=== PATIENT | male | born 1955 | race Caucasian/White ===

== ENCOUNTER → 2017-05-09 | Outpatient (CLI) | payer BC ==
[~2017-05-09] MED LIST: CAL1CHW4 PO; LISI-789 PO; RIVA1TAB4 PO; TPRSR/100 PO
[2017-05-09 13:55] LABS: BASO % 0.7 %; BASO ABS # 0.05 K/uL (0-0.2); COMPLETE YES; HEMATOCRIT 46.6 % (42-52); IG% 0.3 %; LYMPH ABS # 1.52 K/uL (1.2-3.4); MEAN CELL VOLUME 91.9 fL (80-100); MEAN CORPUSCULAR HEMOGLOBIN 31.4 pg (25-34); MEAN CORPUSCULAR HGB CONC 34.1 g/dl (32-36); MEAN PLATELET VOLUME 12.5 fL (7.4-10.4); MONO % 10.5 %; NEUT % 64.5 %; PLATELET COUNT 216 K/uL (130-400); RED BLOOD COUNT 5.07 M/uL (4.7-6.1); WHITE BLOOD COUNT 6.92 K/uL (4.8-10.8)
[2017-05-09 15:11] LABS: ALB/GLOB RATIO 0.9 (0.9-2); ALKALINE PHOSPHATASE 79 U/L (45-117); ALT/SGPT 49 U/L (12-78); AST/SGOT 23 U/L (15-37); BLOOD UREA NITROGEN 14 mg/dl (7-18); BUN/CREATININE RATIO 12.6 (10-20); CALCIUM 9.1 mg/dl (8.5-10.1); CARBON DIOXIDE 24 mmol/L (21-32); CHLORIDE 109 mmol/L (98-107); GLUCOSE 99 mg/dl (70-99); HDL CHOLESTEROL 40 mg/dl; POTASSIUM 4.4 mmol/L (3.5-5.1); SODIUM 143 mmol/L (136-145)
[2017-05-09 15:22] LABS: CHOLESTEROL 183 mg/dl (0-200); CHOLESTEROL/HDL RATIO 4.6; LDL CHOLESTEROL CALCULATED 122 mg/dl; THYROID STIMULATING HORMONE 0.935 uIu/ml (0.300-4.500); TRIGLYCERIDES 104 mg/dl (0-150); VERY LOW DENSITY LIPOPROT CALC 21 mg/dl
== END | disposition home or self-care (01) ==
LOC: C.LABMFLN 08:43
PROVIDERS: ATTEND Family Medicine
DX: I48.91 Unspecified atrial fibrillation (principal); Z13.220 Encounter for screening for lipoid disorders; Z12.5 Encounter for screening for malignant neoplasm of prostate

== ENCOUNTER → 2017-06-12 | Day surgery (SDC) | payer BC ==
[~2017-06-12] VITALS: Ht 182.9 cm; Wt 125.0 kg
[~2017-06-12] MED LIST changes: +LIDOCAINE HCL 2% 2 ML VIAL (20MG/ML) ONE; +PROPOFOL IV EMULSION 10 MG/ML 20 ML VIAL IV ONE
[2017-06-12 07:05] VITALS: Ht 182.9 cm; Wt 125.0 kg
[2017-06-12 07:12] VITALS: BP 130/87; PULSE 93; TEMP 36.4; O2SAT 96
--- NOTE | 2017-06-12 07:21 | History & Physical Bridge Note ---
H&P Re-Evaluation Bridge Note: I have examined the patient, reviewed the History & Physical and in the interval since the performance of the History & Physical I have noted the following changes of clinical significance: Still in AF. Compliant with anticoagulationNo changes noted
[2017-06-12 07:35] VITALS: BP 128/91; PULSE 86; O2SAT 97
[2017-06-12 07:40] VITALS: BP 129/94; PULSE 99; O2SAT 97
[2017-06-12 07:45] VITALS: BP 126/73; PULSE 96; O2SAT 96
--- NOTE | 2017-06-12 07:51 | Procedure Note: [facility] Only ---
Procedure Note Date of Service Jun 12, 2017. Procedure Procedure: Cardioversion Indication: Atrial fibrillation Screen Tender: Alon uQintana Patient presented in a fasting state. Consent obtained after R/B/A discussed. Patient underwent administration of a general anesthetic. Once anesthetized, 200J and 360J delivered without success. Additional 360J delivered with a return to sinus rhythm. EKG confirmed rhythm. No immediate complications. Neurologically intact afterward. Impression: Successful cardioversion from atrial fibrillation to sinus rhythm.
--- NOTE | 2017-06-12 07:53 | Discharge Instructions ---
Discharge Instructions Date of Service Jun 12, 2017. Admission Reason for Admission: A-Fib Dr. Quintana To Do* Anesthesia Notified Discharge Discharge Diagnosis / Problem: atrial fibrillation Discharge Goals Goal(s): Improve function Activity Recommendations Activity Limitations: resume your previous activity Lifting Limitations: none Exercise/Sports Limitations: none May Resume Sexual Activity: when tolerated Shower/Bathe: no limitations Driving or Machine Use: resume 1 day after discharge . Instructions / Follow-Up Instructions / Follow-Up f/u with Chirag Gutierrez in 1 month Current Hospital Diet Patient's current hospital diet: Discharge Diet Recommended Diet: AHA Diet (Heart Healthy) Procedures Procedures Performed: cardioversion Pending Studies Studies pending at discharge: no Laboratory Results Lipid Panel Test 05/09/17 08:44 Range/Units Triglycerides Level 104 0-150 mg/dl Cholesterol Level 183 0-200 mg/dl HDL Cholesterol 40 mg/dl Cholesterol/HDL Ratio 4.6 LDL Cholesterol, Calculated 122 mg/dl Medical Emergencies . Who to Call and When: Medical Emergencies: If at any time you feel your situation is an emergency, please call 911 immediately. . Non-Emergent Contact Non-Emergency issues call your: [employer] Technician Call Non-Emergent contact if: you have any medication questions . . "Provider Documentation" section prepared by Dawson Quintana. . VTE Core Measure Inpt VTE Proph given/why not?: Treatment not indicated
--- NOTE | 2017-06-12 08:02 | Anesthesiology Progress Note ---
Anesthesia Post Op Note Date & Time Jun 12, 2017 at 08:01 Vital Signs Pain Intensity: 0 Vital Signs Past 12 Hours Date Time Temp Pulse Resp B/P (MAP) Pulse Ox O2 Delivery O2 Flow Rate FiO2 06/12/17 07:50 73 16 107/66 (80) 97 Room Air 06/12/17 07:45 96 18 126/73 96 Nasal Cannula 4 06/12/17 07:40 99 12 129/94 97 Nasal Cannula 4 06/12/17 07:35 86 18 128/91 97 Nasal Cannula 4 06/12/17 07:12 36.4 93 16 130/87 96 Room Air Notes Mental Status: alert / awake / arousable, participated in evaluation Pt Amnestic to Procedure: Yes Nausea / Vomiting: adequately controlled Pain: adequately controlled Airway Patency, RR, SpO2: stable & adequate BP & HR: stable & adequate Hydration State: stable & adequate Anesthetic Complications: no major complications apparent
[2017-06-12 08:25] VITALS: BP 140/90; PULSE 88; O2SAT 96
== END | disposition home or self-care (01) ==
LOC: C.CATH 06:53
PROVIDERS: ATTEND Internal Medicine Clinical Cardiac Electrophysiology
DX: I48.0 Paroxysmal atrial fibrillation (principal); I42.9 Cardiomyopathy, unspecified; I48.91 Unspecified atrial fibrillation; K21.9 Gastro-esophageal reflux disease without esophagitis; F17.220 Nicotine dependence, chewing tobacco, uncomplicated; E78.5 Hyperlipidemia, unspecified; Z79.01 Long term (current) use of anticoagulants; Z82.49 Family history of ischemic heart disease and other diseases of the circulatory system; Z80.0 Family history of malignant neoplasm of digestive organs

== ENCOUNTER → 2018-02-01 | Outpatient (CLI) | payer BC ==
[~2018-02-01] MED LIST changes: -LIDOCAINE HCL 2% 2 ML VIAL (20MG/ML) ONE; -PROPOFOL IV EMULSION 10 MG/ML 20 ML VIAL IV ONE
--- NOTE | 2018-02-01 14:11 | EXERCISE STRESS ECHO ---
*NOTICE TO RECEIVING [employer] This information is strictly Confidential and protected under [place] law. [place] law prohibits you from making any further disclosure of this information unless further disclosure is expressly permitted by the written consent of the person to whom it pertains or is authorized by law. A general authorization for the release of medical or other information is not sufficient for this purpose. Hospital accepts no responsibility if the information is made available to any other person, INCLUDING THE PATIENT. Interpretation Summary * Name: EZRA DELONG Study Date: 02/01/2018 09:32 AM BP: 117/88 mmHg * Patient Location: [facility] HR: 96 * : 1955 (M/d/yyyy) Gender: Male Height: 72 in * Age: 62 yrs Ethnicity: [place] Weight: 275 lb * Ordering Physician: Don Abrams * Referring Physician: Don Abrams * Performed By: Eryn Marvin RDCS * * Reason For Study: Atrial Fibrillation, Cardiomyopathy * BSA: 2.4 m2 * -- Conclusions -- * 1. Abnormal stress echocardiogram with distal anterior wall and apical stress-induced ischemia. * 2. Exercise-induced dyspnea * 3. Abnormal EKG response * 4. Baseline echocardiogram notes normal left ventricular systolic function. * Plan * 1. Restart metoprolol succinate * 2. Start aspirin 81 mg daily * 3. Nitroglycerin p.r.n.. Instructions and prescriptions given. * 4. Follow-up with Dr. Quintana next week to set up cardiac catheterization. Procedure Details * ECHOEX, CPT #[id number] * ECHO DOPPLER, CPT #[id number] * ECHO COLOR FLOW, CPT #[id number] Left Ventricle * The left ventricle is normal in size. * There is borderline concentric left ventricular hypertrophy. * Ejection Fraction = 55-60%. * The left ventricular wall motion is normal at rest. * There is akinesis to severe hypokinesis of the distal anterior wall, adjacent anteroseptum, and the entire apex at peak exercise. Right Ventricle * The right ventricle is normal in size and function. Atria * The left atrium is mildly dilated. * The right atrium is mildly dilated. * No ASD detected; PFO is not assessed. Mitral Valve * The mitral valve anatomy is normal. * There is no mitral valve stenosis. * There is trace mitral regurgitation. Tricuspid Valve * The tricuspid valve anatomy is normal. * There is no tricuspid stenosis. * There is trace tricuspid regurgitation. Aortic Valve * The aortic valve is not well visualized. * The aortic valve opens well. * Aortic stenosis is absent. * No aortic regurgitation is present. Pulmonic Valve * The pulmonary valve is not well seen, but the Doppler examination is normal without significant regurgitation or stenosis. Great Vessels * The aortic root is normal size. * The pulmonary is not well visualized. Pericardium * There is no pericardial effusion. Stress Parameters * Normal baseline electrocardiogram. * There is >[address] depression in the inferolateral leads. * The stress portion of this study was personally supervised by the undersigned interpreting physician. * Rest heart rate was '96' BPM. * Rest blood pressure was '117/88' * Maximum heart rate achieved was 150 bpm. * Maximum heart rate was 94 % of maximum age-predicted heart rate. * Maximum blood pressure was '163/80' * Total exercise time was '05:23' * Maximum exercise MET level achieved was '7.00' METS * Maximum treadmill speed was '2.50' miles per hour. * Maximum treadmill elevation was '12.00'% grade. Left Ventricular Diastolic Function * Grade I diastolic dysfunction, (abnormal relaxation pattern). MMode 2D Measurements and Calculations IVSd 1.2 cm IVSs 1.4 cm LVIDd 4.7 cm LVIDs 3.0 cm LVPWd 1.4 cm LVPWs 1.4 cm IVS/LVPW 0.90 FS 36.9 % EDV(Teich) 101.8 ml ESV(Teich) 33.8 ml EF(Teich) 66.8 % EDV(cubed) 103.0 ml ESV(cubed) 25.9 ml EF(cubed) 74.9 % % IVS thick 16.9 % % LVPW thick 4.8 % LV mass(C)d 238.9 grams LV mass(C)dI 97.9 grams/m\S\2 LV mass(C)s 145.4 grams LV mass(C)sI 59.6 grams/m\S\2 SV(Teich) 68.0 ml SI(Teich) 27.9 ml/m\S\2 SV(cubed) 77.2 ml SI(cubed) 31.6 ml/m\S\2 Ao root diam 3.5 cm Ao root area 9.5 cm\S\2 ACS 2.6 cm LA dimension 4.3 cm LA/Ao 1.2 LVAd ap4 34.6 cm\S\2 LVLd ap4 9.1 cm EDV(MOD-sp4) 106.5 ml EDV(sp4-el) 111.6 ml LVAs ap4 20.2 cm\S\2 LVLs ap4 8.0 cm ESV(MOD-sp4) 42.6 ml ESV(sp4-el) 43.2 ml EF(MOD-sp4) 60.0 % EF(sp4-el) 61.3 % LVAd ap2 38.0 cm\S\2 LVLd ap2 9.9 cm EDV(MOD-sp2) 117.1 ml EDV(sp2-el) 123.9 ml LVAs ap2 23.1 cm\S\2 LVLs ap2 8.5 cm ESV(MOD-sp2) 51.8 ml ESV(sp2-el) 53.0 ml EF(MOD-sp2) 55.7 % EF(sp2-el) 57.2 % LVLd %diff 7.9 % EDV(MOD-bp) 115.9 ml LVLs %diff 6.4 % ESV(MOD-bp) 48.6 ml EF(MOD-bp) 58.1 % SV(MOD-sp4) 63.9 ml SI(MOD-sp4) 26.2 ml/m\S\2 SV(MOD-sp2) 65.3 ml SI(MOD-sp2) 26.8 ml/m\S\2 SV(MOD-bp) 67.3 ml SI(MOD-bp) 27.6 ml/m\S\2 SV(sp4-el) 68.4 ml SI(sp4-el) 28.0 ml/m\S\2 SV(sp2-el) 70.9 ml SI(sp2-el) 29.1 ml/m\S\2 Doppler Measurements and Calculations MV E max vicky 68.3 cm/sec MV A max vicky 93.4 cm/sec MV E/A 0.73 MV dec time 0.24 sec Ao V2 max 123.8 cm/sec Ao max PG 6.1 mmHg Ao max PG (full) 1.5 mmHg LV V1 max PG 4.6 mmHg LV V1 max 107.2 cm/sec PA V2 max 122.5 cm/sec PA max PG 6.0 mmHg PI max vicky 171.7 cm/sec PI max PG 11.8 mmHg PI dec slope 166.6 cm/sec\S\2 PI P1/2t 301.8 msec TR max vicky 209.7 cm/sec
== END | disposition home or self-care (01) ==
LOC: C.CPL 09:23
PROVIDERS: ATTEND Family Medicine
DX: I42.9 Cardiomyopathy, unspecified (principal); I48.0 Paroxysmal atrial fibrillation

== ENCOUNTER → 2018-02-01 | Outpatient (CLI) | payer BC ==
[2018-02-01 13:16] LABS: ALT/SGPT 94 U/L (12-78); AST/SGOT 43 U/L (15-37); BLOOD UREA NITROGEN 15 mg/dl (7-18); CALCIUM 9.3 mg/dl (8.5-10.1); CARBON DIOXIDE 29 mmol/L (21-32); CHOLESTEROL 143 mg/dl (0-200); CREATININE 1.06 mg/dl (0.60-1.40); GLUCOSE 104 mg/dl (70-99); SODIUM 139 mmol/L (136-145)
[2018-02-01 13:20] LABS: LDL CHOLESTEROL CALCULATED 89 mg/dl
== END | disposition home or self-care (01) ==
LOC: C.LABMFLN 08:01
PROVIDERS: ATTEND Family Medicine
DX: E78.5 Hyperlipidemia, unspecified (principal); I42.9 Cardiomyopathy, unspecified

== ENCOUNTER → 2018-02-06 | Outpatient (CLI) | payer BC ==
[2018-02-06 12:22] LABS: HEMATOCRIT 45.9 % (42-52); MEAN CELL VOLUME 92.5 fL (80-100); MEAN CORPUSCULAR HEMOGLOBIN 32.3 pg (25-34); MEAN CORPUSCULAR HGB CONC 34.9 g/dl (32-36); MEAN PLATELET VOLUME 12.5 fL (7.4-10.4); PLATELET COUNT 193 K/uL (130-400); RED CELL DISTRIBUTION WIDTH CV 14.3 % (11.5-14.5); RED CELL DISTRIBUTION WIDTH SD 48.4 fL (36.4-46.3); WHITE BLOOD COUNT 6.58 K/uL (4.8-10.8)
[2018-02-06 12:32] LABS: PTT PATIENT 28.5 SECONDS (21.0-31.0)
== END | disposition home or self-care (01) ==
LOC: C.LABMFLN 07:05
PROVIDERS: ATTEND Internal Medicine Clinical Cardiac Electrophysiology
DX: Z01.818 Encounter for other preprocedural examination (principal)

== ENCOUNTER → 2018-02-27 | Outpatient (CLI) | payer BC ==
[2018-02-27 18:06] LABS: BASO % 0.5 %; BASO ABS # 0.05 K/uL (0-0.2); EOS % 2.6 %; EOS ABS # 0.24 K/uL (0-0.5); HEMATOCRIT 39.2 % (42-52); HEMOGLOBIN 12.7 g/dL (14.0-18.0); IG# 0.03 K/uL (0.00-0.02); LYMPH ABS # 1.68 K/uL (1.2-3.4); MEAN CELL VOLUME 96.6 fL (80-100); MEAN CORPUSCULAR HEMOGLOBIN 31.3 pg (25-34); MEAN CORPUSCULAR HGB CONC 32.4 g/dl (32-36); MEAN PLATELET VOLUME 10.3 fL (7.4-10.4); MONO % 11.3 %; MONO ABS # 1.05 K/uL (0.11-0.59); NEUT % 67.3 %; NEUT ABS # 6.26 K/uL (1.4-6.5); PLATELET COUNT 526 K/uL (130-400); RED CELL DISTRIBUTION WIDTH CV 14.5 % (11.5-14.5); RED CELL DISTRIBUTION WIDTH SD 51.3 fL (36.4-46.3); WHITE BLOOD COUNT 9.31 K/uL (4.8-10.8)
[2018-02-27 18:09] LABS: BLOOD UREA NITROGEN 21 mg/dl (7-18); CALCIUM 9.1 mg/dl (8.5-10.1); CARBON DIOXIDE 28 mmol/L (21-32); CREATININE 1.13 mg/dl (0.60-1.40); GLUCOSE 90 mg/dl (70-99); POTASSIUM 4.1 mmol/L (3.5-5.1); SODIUM 137 mmol/L (136-145)
== END | disposition home or self-care (01) ==
LOC: C.LABMFLN 12:53
PROVIDERS: ATTEND Family Medicine
DX: I25.10 Atherosclerotic heart disease of native coronary artery without angina pectoris (principal)